=== PATIENT | female | born 2000 | race Caucasian/White ===

== ENCOUNTER 2022-02-21 15:40 | Outpatient (REF) | payer BC, OTHER, SELFPAY ==
[2022-02-20 17:31] LABS: Abs Immature Grans 0.04 10^3/uL (0.0-0.06); Absolute Basophil Count 0.07 10^3/uL (0.0-0.2); Absolute Eosinophil Count 0.02 10^3/uL (0.0-0.7); Absolute Monocyte Count 0.52 10^3/uL (0.1-0.8); Absolute Neutrophil Count 9.08 10^3/uL (1.2-6.7); Basophils % 0.7; Eosinophils % 0.2; HGB 14.9 g/dL (11.2-15.7); Immature Grans % 0.4; Lymphocytes % 6.7; MCH 28.4 pg (27.0-33.0); MCHC 33.9 % (32.0-36.0); MCV 84 fL (80-95); Platelet Count 236 10^3/uL (130-400); RBC 5.24 10^6/uL (3.93-5.22); RDW-SD 39.5 fL; WBC 10.43 10^3/uL (4.4-10.8)
[2022-02-20 17:44] LABS: ALT 20 U/L (14-59); AST 16 U/L (15-37); Albumin 3.7 g/dL (3.4-5.0); Alkaline Phosphatase 79 U/L (46-116); BUN 14 mg/dL (7-18); Bilirubin, Total 1.5 mg/dL (0.2-1.0); CREATININE 0.9 mg/dL (0.55-1.02); Calcium 9.1 mg/dL (8.5-10.1); Chloride 99 mmol/L (98-107); Glucose 104 mg/dL (74-106); Lipase 57 U/L (73-393); Potassium 4.3 mmol/L (3.5-5.1); Sodium 136 mmol/L (136-145); Total Protein 7.4 g/dL (6.4-8.2)
== END 2022-02-21 15:41 | disposition home or self-care (01) ==
LOC: LBN 15:40
PROVIDERS: PCP Nurse Practitioner Family; Visit Provider Nurse Practitioner Family
DX: R11.10 Vomiting, unspecified (principal); R10.9 Unspecified abdominal pain; N39.0 Urinary tract infection, site not specified
CPT/HCPCS: 80053; 83690; 85025; 87086

== ENCOUNTER 2023-02-14 15:31 | Outpatient (REF) | payer BC, OTHER, SELFPAY ==
--- NOTE | 2023-02-14 15:00 | PAPFT_PTH ---
PATIENT: Karena Alexander LOC: [facility] U#:[id number] AGE/SX: 23/F ROOM: RE02/14/[address]: Marce Connolly NP : 2000 BED: DIS: 02/14/2023 SPEC #: [id number] RECD: 02/14/23 17:39 STATUS: KASSANDRA REAce #: [id number] LALI: 02/14/23 15:[address]: Marce Connolly NP DEPT: [facility] Cytology RECD BY: Jonna Obregon ENTERED: 02/14/23 17:39 SP TYPE: PAPFT OTHR DR: Gloria Burks NP Tissues: 1 - CX/ENDOCX FOR PAP SMEARS Procedures: PAP THIN PREP/[facility] Screening Comments: [id number]
== END 2023-02-14 15:32 | disposition home or self-care (01) ==
LOC: LBN 15:31
PROVIDERS: PCP Nurse Practitioner Family; Visit Provider Nurse Practitioner Women's Health
DX: Z12.4 Encounter for screening for malignant neoplasm of cervix (principal)
CPT/HCPCS: 88142